=== PATIENT | female | born 1945 | race Hispanic/Latino ===

== ENCOUNTER → 2023-11-15 | Outpatient (CLI) | payer OTHER, MEDICARE | END | disposition home or self-care (01) | LOC: RAH 15:39 | PROVIDERS: ATTEND Internal Medicine | DX: K43.9 Ventral hernia without obstruction or gangrene (principal); R10.30 Lower abdominal pain, unspecified; K76.0 Fatty (change of) liver, not elsewhere classified; R16.0 Hepatomegaly, not elsewhere classified; M47.815 Spondylosis without myelopathy or radiculopathy, thoracolumbar region; J90 Pleural effusion, not elsewhere classified; J98.11 Atelectasis; N28.1 Cyst of kidney, acquired; R60.1 Generalized edema; Z90.49 Acquired absence of other specified parts of digestive tract | CPT/HCPCS: 74176 ==